=== PATIENT | male | born 1950 | race Caucasian/White ===

== ENCOUNTER 2017-09-16 06:40 | Inpatient (IN) | payer MEDICARE, BC ==
[~2017-09-16 06:40] MED LIST: CEFAZOLIN 2 Gram 2 GM/50 ML BAG IVPB ONE; CELECOXIB 100 MG CAPSULE PO ONE; FAMOTIDINE 20MG TABLET PO ONE; MECLIZINE 25 MG TABLET PO ONE; METOCLOPRAMIDE 10 MG TABLET PO ONE; VANCOMYCIN HCL 1,000 MG in DEXTROSE 5 % IN WATER 250 ML IVPB ONE
[2017-09-16 07:56] LABS: ABO GROUP A; ANTIBODY SCREEN NEGATIVE (NEGATIVE); RH TYPE POSITIVE
[2017-09-16] MEDS ORDERED: AL HYDROX/MAG HYDROX 30ML UD PO PRN (10:47)
[2017-09-16] MEDS ORDERED: ZOLPIDEM TARTRATE 5 MG TABLET PO PRN (10:47)
[2017-09-16] MEDS ORDERED: MAGNESIUM HYDROXIDE 30 ML UDC PO PRN (10:47)
[2017-09-16] MEDS ORDERED: DIPHENHYDRAMINE HCL 25 MG CAPSULE PO PRN (10:47)
[2017-09-16] MEDS ORDERED: NALOXONE 0.4 MG/1 ML VIAL IVP PRN (10:47)
[2017-09-16] MEDS ORDERED: BISACODYL 10 MG SUPP RC PRN (10:47)
[2017-09-16] MEDS ORDERED: KETOROLAC 30 MG/ML VIAL IVP PRN ×2 (10:47)
[2017-09-16] MEDS ORDERED: ACETAMINOPHEN 325 MG TAB PO PRN (10:47)
[2017-09-16] MEDS ORDERED: ONDANSETRON HCL IV 4 MG/2 ML VIAL IVP PRN (10:47)
[2017-09-16] MEDS ORDERED: MEPERIDINE 50 MG/1 ML VIAL IV PRN (10:54)
[2017-09-16] MEDS ORDERED: TRANEXAMIC ACID 1,000 MG/10 ML ML IV ONE ×2 (12:52→15:10)
[2017-09-16] MEDS ORDERED: 0.9 % SODIUM CHLORIDE 10 ML VIAL IVP ONE (12:52)
[2017-09-16] MEDS: POTASSIUM CHLORIDE/D5-0.9%NACL 20 MEQ/1,000 ML BAG IV SCH ×2 (13:22→17:00)
[2017-09-16] MEDS: TRAMADOL HCL 50 MG TABLET PO PRN ×2 (13:58→22:25)
[2017-09-16] MEDS ORDERED: KETOROLAC 30 MG/ML VIAL IVP ONE (14:00)
--- NOTE | 2017-09-16 15:09 | Operative Note ---
DATE OF SURGERY: 09/16/17 PREOPERATIVE DIAGNOSIS: END-STAGE ARTHROSIS OF THE RIGHT KNEE. POSTOPERATIVE DIAGNOSIS: END-STAGE ARTHROSIS OF THE RIGHT KNEE. PROCEDURE: CEMENTED RIGHT TOTAL KNEE ARTHROPLASTY USING FONSECA-NEPHEW ADELIA II COMPONENTS WITH A SIZE 7 OXINIUM FEMUR, A SIZE 7 STEM TIBIAL BASEPLATE, A 9 mm LIPPED TIBIAL INSERT, AND A 35 MM ALL-PLASTIC PATELLA. STAFF SURGEON: ABDI GRUBBS M.D. ANESTHESIA: SPINAL. PREPARATION: CHLORAPREP. INDIVIDUAL CONSIDERATIONS: NONE. PROCEDURE: The patient was taken to the Operating Room and placed supine on the operating table. He had a successful induction of a spinal anesthetic. His right lower extremity was prepped and draped in the usual fashion. Limb was elevated. The tourniquet was inflated to 250 mmHg. The patient had a midline approach to the knee. Sharp dissection was carried down through the skin and subcutaneous tissues. Small veins were coagulated with a Bovie. A medial arthrotomy was performed. Patella was everted and the knee was flexed. He had exposed bone in the medial patellofemoral compartments with obvious bone loss. The fat pad was resected, ACL was sacrificed, provisional anterior meniscectomies were performed, and the capsule was released from the medial proximal tibia. The initial femoral airline transport pilot hole was then made freehand. The intramedullary femoral cutting jig was placed. It was cut in 7.0 degrees of valgus and adjusted for rotation and secured with pins for a 10 mm resection. The initial transverse cut was then made. Skin guide was placed for the anterior and posterior airline transport pilot holes. It was found that a size 7 would be appropriate. The anterior and posterior cuts were made and osteophytes were removed, and a size 7 trial was placed and found to fit well. The tibia was brought forward and the remainder of the meniscal remnants were removed with a Bovie. The extra-articular tibial cutting jig was placed and it was cut in neutral with a 3-degree AP slope. Care was taken to adjust for rotation and flexion using the extra-articular alignment guide and bony landmarks. It was set for a 9 mm resection and keyed off the high lateral side and secured with pins. When cutting the tibia, care was taken to preserve the PCL insertion on the tibia. Large medial osteophytes were removed and it was found that a size 7 baseplate would fit appropriately. It was adjusted for rotation and secured with pins. With a 9 mm trial and a size 7 femoral trial, there was excellent motion and stability. Ligamentous balance, rotation, and alignment were thought to be normal. The femoral airline transport pilot holes were impacted and the triflange tibial stamp was impacted, and these trial components were removed. The patient had a thick patella and roughly 9 mm of bone was removed with an oscillating saw then I could easily fit a 35 mm patella and three airline transport pilot holes were drilled. The tourniquet was let down briefly to get bleeders posteriorly then placed back up again. The knee was then thoroughly irrigated out with pulsatile Betadine and saline to remove any visual or palpable debris. Bony surfaces were then dried. A size 7 stemmed tibial baseplate was cemented into place, followed by impaction of a 9 mm lipped Highly Crosslink tibial insert, followed by cementing in a size 7 Oxinium cruciate retaining femur, followed by cementing of a 35 mm patella. Implant surfaces were compressed, excess cement was removed, and after the cement had set, there was excellent motion and stability, ligamentous balance, rotation, alignment, and patellofemoral tracking were normal. No lateral release was required. Again, thorough irrigation to remove and visual or palpable debris. The tourniquet was let down. Hemostasis was obtained with a Bovie. 30 mL of 0.75% Marcaine with Epinephrine was then used to infiltrate the skin, subcutaneous tissue, and periosteum of the distal femur and proximal tibia. The capsule was then closed with a running #2 quill, the subcutaneous was closed in layers with running 0 quill, and the skin was closed with michael. The patient did receive 1 gram of Tranexamic Acid preoperatively. I then mixed 1 gram of Tranexamic Acid with 30 mL of saline and injected it into the knee through a sterile 18- gauge needle, and a sterile Bulkee compressive Aquacel-type dressing was applied. The patient tolerated the procedure well. Needle and sponge counts were correct. Estimated blood loss was minimal and he was taken back to the Recovery Room in good condition. There were no complications. JOB NUMBER: [id number] MTDD
[2017-09-16] MEDS ORDERED: CEFAZOLIN 1G VIAL IM ONE (15:10)
[2017-09-16] MEDS ORDERED: BUPIVACAINE 0.75% W/EPI MPF 30ML VIAL IVP ONE (15:10)
--- NOTE | 2017-09-16 15:16 | Rehab Evaluation ---
Patient Information - Patient Information Diagnosis: DJD R knee Ordered Treatment: PT Evaluate and Treat Status: Initial Evaluation Surgery: Yes Date of Surgery: 09/16/17 Past Medical/Surgical Hx: PAST MEDICAL/SURGICAL HISTORY Past Surgical History LTKA right nephrectomy CA curtis ear drum repair rhinoplasty tonsils kidney stone removal bladder bx's benign heart cath 7-8 years ago colon resection lipoma c scopes PMH - Respiratory Hx Respiratory Disorders No Comment: sinus drainage PMH - Cardiovascular Hx Cardiovascular Disorders Yes Hx Cardiac Catheterization Yes Hx Hypertension Yes: on meds good control Hx Irregular Heartbeat Yes: tachy due to meds and dehydration in the past Exercise Tolerance Fair PMH - Neuro Hx Neurological Disorders Yes Hx Weakness Yes: hands Comment: hx night terrors PMH - GI Hx Gastrointestinal Disorders Yes Hx Diverticulitis Yes Hx Gastroesophageal Reflux Yes: occassionally Comment: colon resection due to lipoma in colon PMH - Hx Genitourinary Disorders Yes Hx Bladder Problem Yes: frequent Hx Kidney Stones Yes Hx Renal Disease Yes: nephrectomy due to cancer PMH - Endocrine Hx Endocrine Disorders Yes Hx Diabetes Yes: boarderline last A1C 7.1 PMH - Musculoskeletal Hx Musculoskeletal Disorders Yes Hx Arthritis Yes: hands PMH - Psych Hx Psychiatric Problems No PMH - Hematology/Oncology Hx Hematology/Oncology Yes Disorders Hx Cancer Yes: renal Hx Chemotherapy No Hx Radiation Therapy No Premorbid Status: Detail (The patient was independent with mobility) Social History: Detail (The patient lives in a bilevel home with one step on the porch then 5-6 steps and one railing to access the first floor. The patient 's bedroom and bathroom are on the first floor. The patient's bathroom is equipped with a tub/shower combination with tub seat and a regular toilet. No grab bars are present in the bathroom. The patient was previously vended a standard walker.) Precautions: [place], Other (WBAT on the R LE) - Time With Patient Total Time Spent With Patient (Min): 30 Treatment Procedures: Detail (Initial Evaluation. The patient's HEP was partially reviewed ie: ankle pumps, gluteal sets, quad sets and SLR,) Subjective Information - Subjective Information Per Patient (The patient complained on R knee pain level 6-7.) Objective Data - Mental Status Patient Orientation: Oriented x3 - Visual Perception Appears within normal limits for therapeutic activities - ROM Not within normal limits (The patietn's L LE AROM was WNL. The patient's R hip and ankle AROM were WFL. The patient's knee motion was not tested at this time due to status post surgery.) - Strength/Tone Not within normal limits (The patient's L LE strength was generally 4+ to 5/5. The patient's R LE strength was not formally tested due to status post surgery, however the patient's strength was functionalie: the patient was able to lift R LE off of bed.) - Bed Mobility Independent (The patient was independent with supine to and from sit transfer and scooting up in bed.) - Transfers Independent (The patient was independent with sit to and from stand transfer and supervision for safety with toilet transfer.) - Balance Balance Sitting: Good Balance Standing: Good - Sensation Intact - Gait Detail (The patient ambulated with wheeled walker WBAT on the R LE with assist of 1 to handle IV only a distance of 50 feet x 1 and 11 feet x 1.) Therapy Assessment - Therapy Assessment Detail (The patient was independent with transfers and bed mobility and supervision with ambulation on level surfaces. Feel the patient will progress well with mobility.) Problem List - Problem List Physical Therapy Problem List: Detail (1) Decreased R knee AROM and strength as to be expected following surgery. 2) Non ambulatory on stairs) Goals - Goals Physical Therapy Goals: 1) The patient will be independent with ambulation with assistive device on levels and stairs WBAT on the R LE. 2) The patient will be independent with all transfers. 3) The patient will be independent with HEP. Prognosis - Prognosis Good Plan - Plan Physical Therapy Plan: PT 1-2 times a day gait training, transfer training, instruction in HEP until all inpatient PT goals were met.
[2017-09-16] MEDS ORDERED: *PACU ONLY* KETAMINE HCL 10 MG/ML (20ML) VIAL IV ONE (16:09)
[2017-09-16] MEDS ORDERED: FENTANYL PF 100MCG/2ML VIAL IV ONE (16:09)
[2017-09-16] MEDS ORDERED: MIDAZOLAM HCL 2MG/2ML VIAL IV ONE (16:09)
[2017-09-16] MEDS ORDERED: PROPOFOL 10 MG/ML VIAL IV ONE (16:09)
[2017-09-16] MEDS ORDERED: EPHEDRINE SULFATE 50 MG/ML ML IV ONE (16:09)
[2017-09-16] MEDS: CEFAZOLIN 2 Gram 2 GM/50 ML BAG IVPB SCH (17:02)
[2017-09-17] MEDS: DOCUSATE SODIUM 100 MG CAPSULE PO SCH ×2 (00:24→09:53)
[2017-09-17] MEDS: CEFAZOLIN 2 Gram 2 GM/50 ML BAG IVPB SCH ×2 (00:25→08:12)
[2017-09-17] MEDS: POTASSIUM CHLORIDE/D5-0.9%NACL 20 MEQ/1,000 ML BAG IV SCH ×2 (00:28→05:07)
[2017-09-17] MEDS: TRAMADOL HCL 50 MG TABLET PO PRN ×3 (04:01→12:09)
[2017-09-17 06:59] LABS: HEMATOCRIT 38.8 % (42.0-52.0); HEMOGLOBIN 12.9 gm/dl (14.0-18.0)
[2017-09-17 07:08] LABS: BLOOD UREA NITROGEN 13 mg/dL (8-23); CREATININE 0.9 mg/dL (0.7-1.2); EST GLOMERULAR FILTRATION RATE > 60 mL/min; GLUCOSE,RANDOM 221 mg/dL (74-109)
[2017-09-17] MEDS ORDERED: FERROUS SULFATE 325 MG TAB PO SCH (10:00)
[2017-09-17] MEDS ORDERED: ASPIRIN 81 MG TABEC PO SCH (10:00)
[2017-09-17] MEDS ORDERED: PATIENT OWN MED: LOSARTAN 50 MG PO SCH (10:00)
[2017-09-17] MEDS ORDERED: PATIENT OWN MED: VESICARE 10 MG PO SCH (10:00)
[2017-09-17] MEDS ORDERED: RIVAROXABAN 10 MG TABLET PO SCH (10:00)
[2017-09-17] MEDS ORDERED: PATIENT OWN MED: METOPROLOL TARTRATE 25 MG PO SCH (10:00)
--- NOTE | 2017-09-17 11:20 | Physical Therapy Tx Note ---
Physical Therapy Tx Note - Treatment Note Tolerated: Good Total Time Spent With Patient: 40 Physical Therapy Tx Note: Detail (Pt was just returning to chair from bathroom upon arrival. Pt states that knee is very sore and stiff today and needed to sit for a minute to rest. Pt was able to sit to stand independently gait with standard walker with contact guard assist x 70 feet. Wheeled with wheelchair up to therapy department. Pt was able to complete stairs up and down independently with rails as has rails at home. Pt. was able to transfer to edge of table and supine with min assist with raising right lower extremity and has difficulty with quad sets. Pt was transferred to OT for Evaluation who was going to return patient to room after eval and dressing. Pt states knee is sore after treatment and cold pack was applied x 10 min. with patient supine with lower extremities elevated. Pt to be seen this afternoon to review HEP and possible discharge at that time. Pt may be discharged prior to being seen with Dr. gregg.) Physical Therapy Problem List: Detail (1) Decreased R knee AROM and strength as to be expected following surgery. 2) Non ambulatory on stairs) Physical Therapy Goals: 1) The patient will be independent with ambulation with assistive device on levels and stairs WBAT on the R LE. 2) The patient will be independent with all transfers. 3) The patient will be independent with HEP. Prognosis: Good Physical Therapy Plan: PT 1-2 times a day gait training, transfer training, instruction in HEP until all inpatient PT goals were met.
--- NOTE | 2017-09-17 13:09 | Rehab Evaluation ---
Patient Information - Patient Information Diagnosis: DJD R knee Ordered Treatment: OT Evaluate and Treat Status: Initial Evaluation Surgery: Yes Date of Surgery: 09/16/17 Past Medical/Surgical Hx: PAST MEDICAL/SURGICAL HISTORY Past Surgical History LTKA right nephrectomy CA curtis ear drum repair rhinoplasty tonsils kidney stone removal bladder bx's benign heart cath 7-8 years ago colon resection lipoma c scopes PMH - Respiratory Hx Respiratory Disorders No Comment: sinus drainage PMH - Cardiovascular Hx Cardiovascular Disorders Yes Hx Cardiac Catheterization Yes Hx Hypertension Yes: on meds good control Hx Irregular Heartbeat Yes: tachy due to meds and dehydration in the past Exercise Tolerance Fair PMH - Neuro Hx Neurological Disorders Yes Hx Weakness Yes: hands Comment: hx night terrors PMH - GI Hx Gastrointestinal Disorders Yes Hx Diverticulitis Yes Hx Gastroesophageal Reflux Yes: occassionally Comment: colon resection due to lipoma in colon PMH - Hx Genitourinary Disorders Yes Hx Bladder Problem Yes: frequent Hx Kidney Stones Yes Hx Renal Disease Yes: nephrectomy due to cancer PMH - Endocrine Hx Endocrine Disorders Yes Hx Diabetes Yes: boarderline last A1C 7.1 PMH - Musculoskeletal Hx Musculoskeletal Disorders Yes Hx Arthritis Yes: hands PMH - Psych Hx Psychiatric Problems No PMH - Hematology/Oncology Hx Hematology/Oncology Yes Disorders Hx Cancer Yes: renal Hx Chemotherapy No Hx Radiation Therapy No Premorbid Status: Detail (The patient was independent with mobility and I/ADL's. ) Social History: Detail (The patient lives in a bilevel home with one step on the porch then 5-6 steps and one railing to access the first floor. The patient 's bedroom and bathroom are on the first floor. The patient's bathroom is equipped with a tub/shower combination with shower chair and a regular toilet. No grab bars are present in the bathroom. The patient was previously vended a standard walker.) Precautions: [place], Other (WBAT on the R LE) - Time With Patient Total Time Spent With Patient (Min): 40 Objective Data - Pain Pain Present: Yes (RLE) - Mental Status Patient Orientation: Oriented x3 - Visual Perception Appears within normal limits for therapeutic activities - ROM Within normal limits (BUE) - Strength/Tone Within normal limits (BUE) - Coordination Appears within normal limits for therapeutic activities - Bed Mobility Independent - Transfers Independent (sit<>stand) - Balance Balance Sitting: Good Balance Standing: Fair - Sensation Intact (light touch in tact BUE fingertips) - ADL's/IADL's Detail (Pt. required min assist (seated EOB) from to thread BLE in elastic waist pants & boxers. Educ. was provided on use of a pleater hand and adaptive dressing techniques to increase pt's independence and maximize safety. Discussed possibility of taking sponge baths until comfortable/strong enough to shower. Educ. was provided on environmental modification options for low/soft surfaces.) Therapy Assessment - Therapy Assessment Detail (In-pt. OT services not recommended at this time. However, pt. may benefit from in-home caregiver assistance during the initial recovery to maximize safety with self-care ADL's such as dressing and bathing, when is unavailable to assist. Pt. would benefit from pleater hand tool to maximize independence with dressing BLE.) Patient Education - Patient Education Teaching Topic: Equipment Use Response: Verbalize Understanding Teaching Method: Discussion Teaching Recipient: Patient, Family () Barriers To Learning: None Problem List - Problem List Physical Therapy Problem List: Detail (1) Decreased R knee AROM and strength as to be expected following surgery. 2) Non ambulatory on stairs) Goals - Goals Physical Therapy Goals: 1) The patient will be independent with ambulation with assistive device on levels and stairs WBAT on the R LE. 2) The patient will be independent with all transfers. 3) The patient will be independent with HEP. Prognosis - Prognosis Good Plan - Plan Physical Therapy Plan: PT 1-2 times a day gait training, transfer training, instruction in HEP until all inpatient PT goals were met. Occupational Therapy Plan: Recommend d/c from OT services at this time. Educ. was provided to call rehab dept if questions/concerns arise when arrive home.
--- NOTE | 2017-09-17 20:34 | Discharge Summary ---
DATE OF ADMISSION: 09/16/17 DATE OF DISCHARGE: 09/17/17 DATE OF SURGERY: 09/16/17 HISTORY: Mr. Umanzor is a delightful 66-year-old male who presents with end- stage arthrosis of his right knee. He was admitted after right total knee arthroplasty. Postoperatively, he did great. His hospital course was unremarkable. His discharge condition was good. His discharge hemoglobin was 12.9. He did not require transfusion. DISCHARGE INSTRUCTIONS: The plan is to discharge him to home in the care of his family. Home PT and Visiting Nurse have been arranged. He will be given Ultram for pain and Xarelto for DVT prophylaxis and he will follow-up in my office in four weeks. The Visiting Nurse will remove his sutures in two weeks. FINAL DIAGNOSIS/PRIMARY DIAGNOSIS: END-STAGE ARTHROSIS OF THE RIGHT KNEE. SECONDARY DIAGNOSIS: NONE. OPERATIONS AND PROCEDURES: CEMENTED RIGHT TOTAL KNEE ARTHROPLASTY. DISCHARGE CONDITION: GOOD. JOB NUMBER: [id number] MTDD
== END 2017-09-17 12:55 | disposition home health service (06) | DRG 470 ==
LOC: MEDSURG 06:40
PROVIDERS: ADMIT Orthopaedic Surgery; ATTEND Orthopaedic Surgery
PROC: 0SRC069 Replacement of Right Knee Joint with Oxidized Zirconium on Polyethylene Synthetic Substitute, Cemented, Open Approach (ICD-10-PCS; principal; 2017-09-16 09:00)
DX: M17.11 Unilateral primary osteoarthritis, right knee (principal); I10 Essential (primary) hypertension; E11.9 Type 2 diabetes mellitus without complications
CPT/HCPCS: 80048; 85014; 85018; 86850; 86900; 86901; 97110; 97116; 97165; J0690; J1885; J3480; J3490; J7060

== ENCOUNTER 2017-12-24 10:12 | Day surgery (SDC) | payer MEDICARE, BC ==
[2017-12-24] MEDS ORDERED: FENTANYL PF 100MCG/2ML VIAL IV ONE (10:13)
[2017-12-24] MEDS ORDERED: LIDOCAINE 2% MDV (20MG/ML) 20ML VIAL IV ONE (10:13)
[2017-12-24] MEDS ORDERED: BUPIVACAINE 0.5% W/EPI MPF 30 ML VIAL IVP ONE (10:13)
[2017-12-24] MEDS ORDERED: PROPOFOL 10 MG/ML VIAL IV ONE (10:13)
[2017-12-24] MEDS ORDERED: METHYLPREDNISOLONE 40MG/VIAL IM ONE (10:13)
[2017-12-24] MEDS ORDERED: KETOROLAC 30 MG/ML VIAL IVP ONE (10:13)
--- NOTE | 2017-12-26 22:23 | Operative Note ---
DATE: 12/24/2017 PREOPERATIVE DIAGNOSIS: ARTHROFIBROSIS OF THE RIGHT KNEE. POSTOPERATIVE DIAGNOSIS: ARTHROFIBROSIS OF THE RIGHT KNEE. PROCEDURE: 1. RIGHT KNEE MANIPULATION. 2. RIGHT KNEE INTRAARTICULAR INJECTION. STAFF SURGEON: ABDI GRUBBS M.D. ANESTHESIA: GENERAL. PREPARATION: CHLORAPREP. INDIVIDUAL CONSIDERATIONS: NONE. PROCEDURE: The patient was taken to the Operating Room and placed supine on the operating table. He had a successful induction with general anesthetic. I then went ahead and manipulated his knee. At about 90 degrees of flexion there was a solid endpoint but I was able to easily force through and bring him to about 130 degrees of flexion. I then prepped him superolaterally with ChloraPrep and then injected him with 20 mL of 0.5% Marcaine with Epinephrine along with 80 mg of Depo-Medrol through a sterile #18 gauge needle and a Band- Aid was applied. He was taken back to Recovery in good condition. There were no complications. JOB NUMBER: [id number] MTDD
== END 2017-12-24 12:55 | disposition home or self-care (01) ==
LOC: SUR 10:12
PROVIDERS: ATTEND Orthopaedic Surgery
DX: M24.661 Ankylosis, right knee (principal)
CPT/HCPCS: 27570; 01380; J1885; J3010; J1030